=== PATIENT | male | born 1940 | race Caucasian/White ===

== ENCOUNTER 2019-01-16 13:04 | Emergency (ER) | payer MEDICARE, BC ==
[2019-01-16 13:37] LABS: APPEARANCE,URINE Cloudy; BILIRUBIN,URINE 1+ (NEGATIVE); GLUCOSE, URINE (UA) NEGATIVE (NEGATIVE); KETONES,URINE TRACE (NEGATIVE); LEUKOCYTE ESTERASE ,URINE 1+ (NEGATIVE); NITRATE,URINE POSITIVE (NEGATIVE); OCCULT BLOOD,URINE 3+ (NEG-TRACE); UROBILINOGEN,URINE 0.2 (0.2-1.0 EU)
[2019-01-16 13:44] VITALS: RESP 20; TEMP 97.6; O2SAT 99
[2019-01-16 13:48] LABS: COLOR,URINE BLOOD TINGED
[2019-01-16 13:49] LABS: EPITHELIAL CELLS UNABLE TO ENUMERATED (SQUAMOUS); ICTOTEST,URINE NEGATIVE (NEGATIVE); WBC,URINE PACKED FIELDS (0-5AV/HPF)
[2019-01-16 13:50] LABS: BACTERIA UNABLE (< 1+); CRYSTALS UNABLE (0-3 AVE/HPF); RBC,URINE PACKED FIELDS (0-3AV/HPF)
[2019-01-16] MEDS ORDERED: CEFTRIAXONE 1 GM PDS IM ONE (13:50)
[2019-01-16] MEDS ORDERED: CEFTRIAXONE 1 GM PDS ONE (13:56)
[2019-01-16] MEDS ORDERED: LIDOCAINE HCL 1% MPF 30 SOL ONE (13:56)
[2019-01-16 14:31] VITALS: BP 158/82; PULSE 83
== END 2019-01-16 14:25 | disposition home or self-care (01) | DRG 690 ==
LOC: ED 13:04
DX: N39.0 Urinary tract infection, site not specified (principal); D29.1 Benign neoplasm of prostate; G70.00 Myasthenia gravis without (acute) exacerbation
CPT/HCPCS: 81001; 87077; 87088; 87186; 96372; 99283; J0696; J2001